=== PATIENT | male | born 1965 | race African-American/Black ===

== ENCOUNTER 2023-08-14 09:41 | Emergency (ER) | payer OTHER ==
[2023-08-14] MEDS ORDERED: KETOROLAC TROMETHAMINE 30 MG/1 ML VIAL IM ONE (10:28)
[2023-08-14] MEDS ORDERED: METHOCARBAMOL 750 MG TABLET PO ONE (10:28)
[2023-08-14] MEDS ORDERED: DEXAMETHASONE SOD PHOSPHATE 10 MG/1 ML VIAL IM ONE (10:28)
[2023-08-14] MEDS ORDERED: ACETAMINOPHEN 500 MG TABLET (FP) PO ONE (10:28)
[2023-08-14 10:35] VITALS: BP 124/84; PULSE 67; RESP 17; TEMP 98.7; BMI 25.7
[2023-08-14] MEDS ORDERED: ACETAMINOPHEN 500 MG TABLET (FP) ONE (10:37)
[2023-08-14] MEDS ORDERED: METHOCARBAMOL 500 MG TABLET ONE (10:37)
[2023-08-14] MEDS ORDERED: DEXAMETHASONE SOD PHOSPHATE 10 MG/1 ML VIAL ONE (10:37)
[2023-08-14] MEDS ORDERED: KETOROLAC TROMETHAMINE 30 MG/1 ML VIAL ONE (10:37)
== END 2023-08-14 11:54 | disposition home or self-care (01) ==
LOC: JER 09:41
PROC: 3E0233Z Introduction of Anti-inflammatory into Muscle, Percutaneous Approach (ICD-10-PCS; principal; 2023-08-14)
PROC: 3E023NZ Introduction of Analgesics, Hypnotics, Sedatives into Muscle, Percutaneous Approach (ICD-10-PCS; 2023-08-14)
DX: M54.50 Low back pain, unspecified (principal); X50.0XXA Overexertion from strenuous movement or load, initial encounter
CPT/HCPCS: 99284-25; J1100